=== PATIENT | female | born 1955 | race Caucasian/White ===

== ENCOUNTER → 2018-04-19 | Outpatient (CLI) | payer MEDICARE, OTHER ==
[~2018-04-19] MED LIST: CALCIUM 600 +1 EAC1 PO; FISH OIL 1,001000 M2 PO; FLEXERIL PO; GLUCOSAMINE HC500 MG PO; KETOROLAC30 MG/1 M1 PO; LISINOPRIL-HCT1 EAC1 PO; LMTHF-PYRIDOXI1 EACH PO; NAPROSYN500 MG PO; NORCO 5-325 TA1 EACH PO; PHENERGAN 25 MG25 M1 PO; POTASSIUM20 PO; PRAVACHOL20 MG PO; STOOL SOFT50 MG/5 ML PO; SUDOGEST30 MG PO; UNICOMPLEX M TA1 TA1 PO; VIGAMOX3 ML OP; VITAMINC500 PO
== END ==
LOC: M.RAD 11:03
DX: Z12.31 Encounter for screening mammogram for malignant neoplasm of breast (principal)

== ENCOUNTER → 2018-04-30 | Outpatient (CLI) | payer MEDICARE, OTHER | LOC: M.RAD 15:09 | DX: M85.89 Other specified disorders of bone density and structure, multiple sites (principal); I12.9 Hypertensive chronic kidney disease with stage 1 through stage 4 chronic kidney disease, or unspecified chronic kidney disease; N18.3 Chronic kidney disease, stage 3 (moderate); S22.31XA Fracture of one rib, right side, initial encounter for closed fracture; X58.XXXA Exposure to other specified factors, initial encounter; Y93.89 Activity, other specified; Y92.89 Other specified places as the place of occurrence of the external cause; Y99.8 Other external cause status; Z78.0 Asymptomatic menopausal state ==

== ENCOUNTER → 2019-04-25 | Outpatient (CLI) | payer MEDICARE, OTHER | LOC: M.RAD 10:06 | DX: Z12.31 Encounter for screening mammogram for malignant neoplasm of breast (principal) ==

== ENCOUNTER → 2020-01-15 | Outpatient (CLI) | payer MEDICARE, OTHER | LOC: M.ULTRA 01-14 14:49 | PROVIDERS: ATTEND Family Medicine | DX: R10.2 Pelvic and perineal pain (principal); R60.9 Edema, unspecified; M79.605 Pain in left leg; Z90.710 Acquired absence of both cervix and uterus ==

== ENCOUNTER 2020-04-05 11:29 | Emergency (ER) | payer MEDICARE, OTHER ==
[~2020-04-05] VITALS: Ht 170.2 cm; Wt 79.4 kg
[2020-04-05] MEDS ORDERED: NORVASC5 MG PO (11:38)
[2020-04-05] MEDS ORDERED: FLEXERIL PO (11:39)
[2020-04-05] MEDS ORDERED: TELMISARTAN80 MG PO (11:39)
[2020-04-05] MEDS ORDERED: ROSUVASTATIN CA10 MG PO (11:39)
[2020-04-05] MEDS ORDERED: PHENERGAN 25 MG25 MG PO (11:40)
[2020-04-05] MEDS ORDERED: VITAMIN C1000 MG PO (11:40)
[2020-04-05] MEDS ORDERED: [UNRECOGNIZED DRUG - OTHER] (11:40)
[2020-04-05] MEDS ORDERED: VITAMIN B12 (11:41)
[2020-04-05] MEDS ORDERED: VITAMIN E400 UNI7 PO (11:41)
[2020-04-05] MEDS ORDERED: VITAMIN D (11:41)
[2020-04-05] MEDS ORDERED: POTASSIUM GLU2.5 MEQ (11:42)
[2020-04-05] MEDS ORDERED: GLUCOSAMINE-CH1 EACH PO (11:42)
[2020-04-05] MEDS ORDERED: PHILLIPS' LAXA100 MG PO (11:43)
[2020-04-05] MEDS ORDERED: CLARITIN10 M3 PO (11:43)
[2020-04-05] MEDS ORDERED: ALTERIL (11:43)
[2020-04-05] MEDS ORDERED: OMEPRAZOLE 20 M20 M1 PO (11:44)
[2020-04-05] MEDS ORDERED: REFRESH RELIEVA10 ML (11:44)
[2020-04-05 12:20] LABS: HEMATOCRIT 40.6 % (37.0-47.0); HEMOGLOBIN 13.1 gm/dL (12.0-15.0); MCH 29.3 pg (26.0-34.0); MCHC 32.2 g/dL (28.0-37.0); MPV 8.4 fl. (7.2-11.1); NUCLEATED RBCS 0 /100WBC; PLATELET COUNT* 304 thou/uL (150-400); RBC 4.46 mil/uL (4.20-5.00); RDW-CV 13.5 % (10.5-14.5); WBC 11.8 thou/uL (4.0-11.0)
[2020-04-05 12:24] LABS: CALCIUM 9.2 mg/dL (8.5-10.1); CREATININE 1.3 mg/dL (0.6-1.3)
[2020-04-05 12:27] LABS: POTASSIUM 2.9 mmol/L (3.5-5.1)
[2020-04-05 12:29] LABS: APTT 21.5 Seconds (25.0-31.3); TOTAL BILIRUBIN 0.3 mg/dL (<0.1-1.0); TOTAL PROTEIN 7.9 g/dL (6.4-8.2)
[2020-04-05 12:57] LABS: ABSOLUTE MONOCYTES 0.2 thou/uL (0.0-1.2); ABSOLUTE NEUTROPHILS 3.5 thou/uL (1.6-8.1); ATYPICAL LYMPHS 9 %; PLATELET ESTIMATE ADEQUATE
[2020-04-05] MEDS ORDERED: ONDANSETRON HCL4 M2 PO (13:18)
[2020-04-05] MEDS ORDERED: CARAFATE1 GM/10 ML PO (13:18)
[2020-04-05] MEDS ORDERED: NORCO 5-325 TA1 EAC2 PO (14:09)
[2020-04-05 14:20] VITALS: BP 150/86
--- NOTE | 2020-04-06 17:52 | EKG ---
[place] [address] ELECTROCARDIOGRAM REPORT Name: JOO RUBIN Room: [facility]#: [id number] Admission: 04/05/20 Attend Phys: Discharge: 04/05/20 Date of : 51 Date of Service: 04/05/20 1218 Report #: [id number] THIS REPORT FOR: //name// [facility] ED Test Date: 2020-04-05 Test Time: 12:18:59 Pat Name: JOO RUBIN Department: Room: Gender: F Eye Technician: [facility] : 1955 Requested By: Scarlet West Order Number: [id number] MD: Chivo Fair Measurements Intervals [place] Rate: 79 P: 61 NE: 158 QRS: 46 QRSD: 75 T: 36 QT: 376 QTc: 432 Interpretive Statements Sinus rhythm Abnormal R-wave progression, early transition Compared to ECG 03/17/2014 09:16:27 T-wave abnormality no longer present Electronically Signed On 04-06-2020 17:52:34 CDT by hCivo Fair [email or web address] <ELECTRONICALLY SIGNED> By: Chivo Fair MD, FACC 04/06/20 1752 1218 1218 Chivo Fair MD, FACC /EPI
== END 2020-04-05 14:21 | disposition home or self-care (01) ==
LOC: M.ERS 11:29
PROVIDERS: Nurse Practitioner Family
DX: E87.6 Hypokalemia (principal); R10.13 Epigastric pain; R09.89 Other specified symptoms and signs involving the circulatory and respiratory systems; E78.5 Hyperlipidemia, unspecified; K21.9 Gastro-esophageal reflux disease without esophagitis; I10 Essential (primary) hypertension; Z88.1 Allergy status to other antibiotic agents; Z88.8 Allergy status to other drugs, medicaments and biological substances; Z90.710 Acquired absence of both cervix and uterus

== ENCOUNTER → 2020-04-30 | Outpatient (CLI) | payer MEDICARE, OTHER ==
[~2020-04-30] MED LIST changes: +ALTERIL; +CARAFATE1 GM/10 ML PO; +CLARITIN10 M3 PO; +GLUCOSAMINE-CH1 EACH PO; +NORCO 5-325 TA1 EAC2 PO; +NORVASC5 MG PO; +OMEPRAZOLE 20 M20 M1 PO; +ONDANSETRON HCL4 M2 PO; +PHENERGAN 25 MG25 MG PO; +PHILLIPS' LAXA100 MG PO; +POTASSIUM GLU2.5 MEQ; +REFRESH RELIEVA10 ML; +ROSUVASTATIN CA10 MG PO; +TELMISARTAN80 MG PO; +VITAMIN B12; +VITAMIN C1000 MG PO; +VITAMIN D; +VITAMIN E400 UNI7 PO; +[UNRECOGNIZED DRUG - OTHER]
== END ==
LOC: M.RAD 09:41
PROVIDERS: ATTEND Family Medicine
DX: Z12.31 Encounter for screening mammogram for malignant neoplasm of breast (principal)

== ENCOUNTER → 2020-12-18 | Outpatient (CLI) | payer MEDICARE, OTHER | LOC: M.RAD 09:21 | PROVIDERS: ATTEND Family Medicine | DX: N63.11 Unspecified lump in the right breast, upper outer quadrant (principal); N63.15 Unspecified lump in the right breast, overlapping quadrants ==